=== PATIENT | female | born 1945 | race Caucasian/White ===

== ENCOUNTER 2021-09-09 13:03 | Inpatient (IN) | payer MEDICARE ==
[~2021-09-09] VITALS: Ht 162.6 cm; Wt 72.1 kg
[~2021-09-09 13:03] MED LIST: Naprosyn500 MG PO; Norco 5-325 Ta1 EACH PO
[2021-09-09 13:49] LABS: BASOPHILS ABSOLUTE AUTO 0.03 K/mm3 (0.00-0.23); BASOPHILS PERCENT AUTO 0 % (0-2); EOSINOPHILS ABSOLUTE AUTO 0.17 K/mm3 (0.00-0.68); EOSINOPHILS PERCENT AUTO 2 % (0-6); Hematocrit 42.7 % (33.0-51.0); Hemoglobin 14.1 g/dL (11.5-16.0); IMMATURE GRAN ABSOLUTE AUTO 0.03 K/mm3 (0.00-0.10); IMMATURE GRAN PERCENT AUTO 0 % (0-1); LYMPHOCYTES ABSOLUTE AUTO 2.18 K/mm3 (0.84-5.20); LYMPHOCYTES PERCENT AUTO 24 % (21-46); MONOCYTES ABSOLUTE AUTO 0.63 K/mm3 (0.16-1.47); MONOCYTES PERCENT AUTO 7 % (4-13); Mean Corpuscular HGB 31.2 pg (26.0-34.0); Mean Corpuscular Volume 95 fL (80-100); Mean Platelet Volume 9.6 fL (9.1-12.4); NEUTROPHILS ABSOLUTE AUTO 6.08 K/mm3 (1.96-9.15); NEUTROPHILS PERCENT AUTO 67 % (41-73); Platelet Count 389 K/mm3 (150-400); RDW Coefficient Variation 13.2 % (11.7-14.2); RDW Standard Deviation 45.4 fL (35.1-46.3); Red Blood Cell Count 4.52 M/mm3 (3.80-5.20); White Blood Cell Count 9.12 K/mm3 (4.00-11.30)
[2021-09-09 13:50] LABS: Alanine Aminotransfer (ALT/SGP 13 U/L (12-78); Albumin, Blood 3.4 g/dL (3.4-5.0); Albumin/Globulin Ratio 0.8 (0.8-1.8); Alk Phos 149 U/L (50-136); Anion Gap 6 mmol/L (6-16); Aspartate Aminotrans (AST/SGOT 15 U/L (12-37); Bilirubin, Total 0.6 mg/dL (0.1-1.0); Blood Urea Nitrogen 11 mg/dL (8-24); Bun/Creatinine Ratio 12.7 (12.0-20.0); CO2, Blood 28 mmol/L (21-32); Calcium, Blood 8.9 mg/dL (8.5-10.1); Chloride, Blood 108 mmol/L (98-108); Creatinine, Blood 0.86 mg/dL (0.40-1.00); Glomerular Filtration Rate >60 (60-); Glucose, Blood 121 mg/dL (70-99); Potassium, Blood 3.5 mmol/L (3.5-5.5); Sodium, Blood 142 mmol/L (136-145); Total Protein, Blood 7.4 g/dL (6.4-8.2)
[2021-09-09 15:22] LABS: International Normalized Ratio 1.01; Prothrombin Time Results 10.6 Sec (9.7-11.5)
--- NOTE | 2021-09-09 17:29 | NUR ---
GAVE BATH AND SHAPOOED HAIR WITH NURSE / GRIS CARE
[2021-09-09] MEDS ORDERED: VITAMINS (18:25)
--- NOTE | 2021-09-09 20:08 | NUR ---
END OF SHIFT SUMMARY: PATIENT ARRIVED TO UNIT VIA GURNEY. PATIENT ALERT AND ORIENTED TO SELF, FAMILY, MONTH AND REASON FOR ADMISSION (STATED SHE WAS IN [place] AND COULD NOT REMEMBER THAT SHE WAS STILL IN THE HOSPITAL). FACE WAS EQUAL AND SYMMETRICAL. PATIENT DENIED PAIN, NUMBNESS OR TINGLING. PATIENT ABLE TO BEND LEFT KNEE AND FLEX/DORSIFLEX LEFT ANKLE WHEN ASKED. PATIENT IS WEAK AND HAS LIMITED ROM IN LEFT ARM. ABLE TO FOLLOW COMMANDS WITH LEFT ARM (FOR EXAMPLE, ABLE TO GIVE THE RN A LOW HIGH FIVE). PATIENT UP TO BEDSIDE COMMODE WITH 2 PERSON ASSIST. PATIENT ABLE TO MAKE MINIMAL, SMALL MOVEMENTS WITH LEFT FOOT. PATIENT ABLE TO BEAR OWN WEIGHT. FACE IS SYMMETRICAL AND PATIENT HAS FULL ROM OF TONGUE. PATIENT AND REPORTED THAT THE PATIENT WAS ABLE TO EAT BREAKFAST THIS MORNING WITHOUT DIFFICULTY. PATIENT HAD DIFFICULTY FINDING WORDS AT TIMES, BUT SPEECH IS CLEAR. REPORTED THAT THE DIFFICULTY WITH WORD FINDING IS NOT HER BASELINE. PATIENT BECAME AGITATED WHEN IT WAS TIME FOR THE TO LEAVE. SHE REPORTED THAT THEN SHE "WAS GOING TO LEAVE TOO". AFTER EXPLANATION PROVIDED BY RN AND SPOUSE, PATIENT WAS CALM AND COOPERATIVE.
--- NOTE | 2021-09-10 04:58 | NUR ---
Pt is confused oriented to self only. She is impulsive. She took off her telemetry several times, refuses to put it back on. She also took off her IV twie. She does not want another one. Patient is ambulatory, but has a left sided weakness. Patient refuses to get back to bed. She is walking around the room, folding her blankets and attempting to put her clothes on insisting she is leaving. Clin sup Denia aware that patient is walking around the room confuse. Bed alarm is on.
--- NOTE | 2021-09-10 06:27 | NUR ---
Patient is confuse, uncooperative and impulsive. She was found wandering outside room. She refuses to get back to bed. She repeatedly pulled out her IVs and tele. She refuses vitals for the AM. She insist in getting out of bed and putting her clothes on. She does not want to go back to bed after redirecting her. Patient is now transferred to the SCU, Report given to TRACEY SANDOVAL.
--- NOTE | 2021-09-10 15:02 | NUR ---
PATIENT TRYING TO GET UP FROM BED. VERY UNSTEADY AND HAS LEFT SIDE WEAKNESS. ATTEMPTS TO HAVE HER RETURN TO BED ARE MET WITH MUCH RESISTANCE AND PATIENT NOTED TO BE KICKING AND STRIKING OUT AT STAFF. PATIENT IS ABLE TO CALM ENOUGH TO GET HERSELF BACK IN BED. STAFF SITTING NEXT TO BED DISTRACTING PATIENT TO KEEP HER FROM GETTING UP AND FALLING. COMES TO ROOM AND HE WILL DISCHARGE THIS PATIENT TO HOME WITH SPOUSES APPROVAL THAT HE IS WILLING TO TAKE HER HOME AND CAN CARE FOR HER. WAITING FOR DC INSTRUCTIONS AT THIS TIME. WILEY CALDWELL RN
--- NOTE | 2021-09-10 15:23 | NUR ---
PATIENT PLACED IN RESTRAINTS AFTER CONTINUED BEHAVIOR. SHE CONTINUES TO TRY AND GET OUT OF BED WITHOIUT ASSIST. BED ALARMS AND CLOSE MONITORING ARE UNSUCCESSFUL. FAMILY AT BEDSIDE UNABLE TO PERSUADE PAITENT TO STAY IN BED. DC ORDERS NOT RECEIVED AT THIS TIME AND PAITENT REMAINS A FALL RISK. WILEY CALDWELL RN
[2021-09-10] MEDS ORDERED: ASPI325 PO (16:41)
[2021-09-10] MEDS ORDERED: ATORVASTATIN CA80 M1 PO (16:42)
[2021-09-10] MEDS ORDERED: CLOP75 PO (16:43)
== END 2021-09-10 17:13 | disposition home or self-care (01) | DRG 65 ==
LOC: ER 13:03 → MEDS 16:01
PROVIDERS: Physician Assistant; Student in an Organized Health Care Education/Training Program; ADMIT Internal Medicine
DX: I63.9 Cerebral infarction, unspecified (principal); G81.94 Hemiplegia, unspecified affecting left nondominant side; R47.01 Aphasia; E78.00 Pure hypercholesterolemia, unspecified; G47.00 Insomnia, unspecified; R73.03 Prediabetes
CPT/HCPCS: 36415; 70450; 70496; 70498; 70551; 71045; 80053; 82947; 83036; 85025; 85610; 85730; 92610; 93005; 93010; 93306; 93308; 96372; 96374; 96375; 97112; 97116; 97162; 97166; 99285-25; A9270; J1650; J7030; J7050; Q9967

== ENCOUNTER 2023-02-27 12:17 | Inpatient (IN) | payer MEDICARE ==
[~2023-02-27] VITALS: Ht 167.6 cm; Wt 67.7 kg
[~2023-02-27 12:17] MED LIST changes: +ASPI325 PO; +ATORVASTATIN CA80 M1 PO; +CLOP75 PO; +VITAMINS
[2023-02-27 13:34] LABS: BASOPHILS ABSOLUTE AUTO 0.03 K/mm3 (0.00-0.23); BASOPHILS PERCENT AUTO 0 % (0-2); EOSINOPHILS ABSOLUTE AUTO 0.19 K/mm3 (0.00-0.68); EOSINOPHILS PERCENT AUTO 2 % (0-6); Hematocrit 40.6 % (33.0-51.0); Hemoglobin 13.4 g/dL (11.5-16.0); IMMATURE GRAN ABSOLUTE AUTO 0.02 K/mm3 (0.00-0.10); IMMATURE GRAN PERCENT AUTO 0 % (0-1); LYMPHOCYTES ABSOLUTE AUTO 2.17 K/mm3 (0.84-5.20); LYMPHOCYTES PERCENT AUTO 27 % (21-46); MONOCYTES PERCENT AUTO 6 % (4-13); Mean Corpuscular HGB 31.2 pg (26.0-34.0); Mean Corpuscular Volume 94 fL (80-100); Mean Platelet Volume 9.3 fL (9.1-12.4); NEUTROPHILS ABSOLUTE AUTO 5.14 K/mm3 (1.96-9.15); NEUTROPHILS PERCENT AUTO 64 % (41-73); Platelet Count 322 K/mm3 (150-400); RDW Coefficient Variation 12.9 % (11.7-14.2); RDW Standard Deviation 44.6 fL (35.1-46.3); White Blood Cell Count 8.05 K/mm3 (4.00-11.30)
[2023-02-27 13:43] LABS: Albumin, Blood 3.5 g/dL (3.4-5.0); Albumin/Globulin Ratio 0.9 (0.8-1.8); Bilirubin, Total 0.5 mg/dL (0.1-1.0); Bun/Creatinine Ratio 12.2 (12.0-20.0); Calcium, Blood 8.9 mg/dL (8.5-10.1); Creatinine, Blood 0.98 mg/dL (0.40-1.00); Globulin, Blood 3.7 g/dL (2.2-4.0); Potassium, Blood 3.5 mmol/L (3.5-5.5); Total Protein, Blood 7.2 g/dL (6.4-8.2)
[2023-02-27 17:04] LABS: Source, Urine Clean Catch
[2023-02-27 17:11] LABS: Appearance, Urine Clear (Clear); Bilirubin, Urine Neg (Neg); Blood, Urine Neg (Neg); Glucose Qualitative, Urine Neg (Neg); Ketones, Urine Neg (Neg); Leukocyte Esterase, Urine Neg (Neg); Nitrite, Urine Neg (Neg); Protein, Urine Neg (Neg); Urobilinogen, Urine NORM (Normal)
[2023-02-27 17:29] LABS: Color, Urine Pale Yellow (P-Yellow)
[2023-02-27 18:31] VITALS: BP 187/88
[2023-02-27 19:17] VITALS: BP 181/87
--- NOTE | 2023-02-27 22:37 | NUR ---
LATE ENTRY- ER ADMIT PT WAS BROUGHT TO THE ROOM BEFORE MY SHIFT HOWEVER WAS QUICKLY TAKEN FOR IMAGING. PT IS ALERT AND ORIENTED TO SELF, FAMILY AND SOMEWHAT OF THE SITUATION. THE FAMILY ANSWERED MOST OF THE QUESTIONS. PT LOOKED TO FAMILY FOR ANSWERS. DURING THIS TIME I HAD AN INDEPTH CONVERSATION WITH PT AND FAMILY ABOUT CODE STATUS. PT STATES THAT SHE WISHES TO BE A DNR AND PASS NATURALLY IF IT WERE TO OCCUR. SPOUSE AND BOTH SONS AGREED THAT THIS IS HER WISH. MD NOTIFIED AND CODE STATUS UPDATED. PT IS PLEASANTLY CONFUSED. PER FAMILY, PT MENTATION IS CLOSE TO BASELINE. THEY REPORT THAT SHE HAS HAD CONFUSION FOR A LONG TIME AND MENTATION HAS BEEN SLOWLY DECLINING BUT NEVER HAD A DIAGNOSIS. PER FAMILY, PT WALKS OFTEN AT BASELINE AND PARTICIPATES IN DAILY HOUSE HOLD CHORES. BEDSIDE SWALLOW EVAL PERFORMED. NO COUGHING OR CHOKING NOTED. PER MD, OK TO ADVANCE TO CARDIAC DIET WITH ASPIRATION PRECAUTIONS. PT DENIES SMOKING ANY PRODUCT. DURING ADMISSION, EDUCATION PROVIDED ON THE RISKS OF INJURY WHILE USING ANY IGNITION SOURCE AROUND OXYGEN. PT AND FAMILY VERBALIZES UNDERSTANDING. PT DENIES HAVING ANY IGNITION SOURCES. PT SON LEFT DOUBLE CORNER CUTTER OUTSIDE OF THE ROOM IN LOCKED BOX. DOUBLE CORNER CUTTER WAS RETURNED WITH SON WHEN HE LEFT. PT SPOUSE IS AT BEDSIDE AND PLANNING TO STAY OVERNIGHT. BED IS THE LOWEST POSITION, BED ALARM ON WITH CALL LIGHT IN REACH.
[2023-02-28 03:16] VITALS: BP 178/88
--- NOTE | 2023-02-28 06:09 | NUR ---
PT IS ATTEMPTING TO CRAWL OUT OF BED. CONCRETE THINKING. WANTING TO LEAVE THE HOSPITAL. IS AT BEDSIDE. DR. FRANKLIN NOTIFIED. GAURANG ORDERED FOR SAFETY.
--- NOTE | 2023-02-28 07:49 | NUR ---
SHIFT SUMMARY- PT BECAME INCREASINGLY AGITATED AND TRYING TO CLIMB OUT OF BED. PT SPOUSE WAS AT BEDSIDE OVERNIGHT AND TRIED TO HELP KEEP PT CALM AND IN BED. PT HAS LEFT SIDED WEAKNESS, 2 PERSON MAX ASSIST TO THE BEDSIDE COMMODE. I FELT THAT GETTING OUT OF BED IS VERY UNSAFE FOR PT AND STAFF. OFFERED BEDPAN BUT PT DECLINED. PT CONTINUED TO TRY CLIMBING OUT OF BED THROUGHOUT THE SHIFT STATING THAT SHE COULD WALK WITHOUT ISSUE. PT PULLED OFF TELE MULTIPLE TIMES. I SPOKE WITH DR. FRANKLIN. SEE EMAR FOR MEDICAITON ORDER. PT REFUSED THE MEDICAITON AT THE TIME AND CONTINUED TO TRY TO GET OUT OF BED. DR. FRANKLIN NOTIFIED AND GAURANG VEST WAS ORDERED FOR PATIENT SAFETY. PT SON NOW AT BEDSIDE. PER SPOUSE AND SON, THIS IS NOT ACUTE BEHAVIOR. 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 BED IS IN LOWEST POSITION. CALL LIGHT IN REACH AND FAMILY AT BEDSIDE.
[2023-02-28 07:55] VITALS: BP 158/81
[2023-02-28 10:20] LABS: BASOPHILS ABSOLUTE AUTO 0.02 K/mm3 (0.00-0.23); BASOPHILS PERCENT AUTO 0 % (0-2); EOSINOPHILS ABSOLUTE AUTO 0.09 K/mm3 (0.00-0.68); EOSINOPHILS PERCENT AUTO 1 % (0-6); Hematocrit 44.2 % (33.0-51.0); Hemoglobin 14.7 g/dL (11.5-16.0); IMMATURE GRAN ABSOLUTE AUTO 0.04 K/mm3 (0.00-0.10); IMMATURE GRAN PERCENT AUTO 0 % (0-1); LYMPHOCYTES ABSOLUTE AUTO 2.21 K/mm3 (0.84-5.20); LYMPHOCYTES PERCENT AUTO 23 % (21-46); MONOCYTES ABSOLUTE AUTO 0.59 K/mm3 (0.16-1.47); MONOCYTES PERCENT AUTO 6 % (4-13); Mean Corpuscular HGB 30.9 pg (26.0-34.0); Mean Corpuscular HGB Conc 33.3 g/dL (31.5-36.5); Mean Corpuscular Volume 93 fL (80-100); Mean Platelet Volume 9.4 fL (9.1-12.4); NEUTROPHILS ABSOLUTE AUTO 6.56 K/mm3 (1.96-9.15); NEUTROPHILS PERCENT AUTO 69 % (41-73); Platelet Count 291 K/mm3 (150-400); RDW Coefficient Variation 12.6 % (11.7-14.2); RDW Standard Deviation 43.2 fL (35.1-46.3); Red Blood Cell Count 4.75 M/mm3 (3.80-5.20); White Blood Cell Count 9.51 K/mm3 (4.00-11.30)
[2023-02-28 10:44] LABS: Albumin, Blood 3.5 g/dL (3.4-5.0); Albumin/Globulin Ratio 0.9 (0.8-1.8); Bilirubin, Total 0.8 mg/dL (0.1-1.0); Bun/Creatinine Ratio 13.3 (12.0-20.0); Calcium, Blood 9.2 mg/dL (8.5-10.1); Creatinine, Blood 0.83 mg/dL (0.40-1.00); Globulin, Blood 3.9 g/dL (2.2-4.0); Total Protein, Blood 7.4 g/dL (6.4-8.2)
[2023-02-28 15:29] VITALS: BP 159/80
--- NOTE | 2023-02-28 17:49 | NUR ---
SHIFT SUMMARY PT AXO TO SELF ONLY. VSS ALTHOUGH ELEVATED BP NOTED AND THIS NURSE READ IN NOTE THAT PERMISSIVE HTN IS ACCEPTABLE AT THIS TIME. GAURANG LOCO'D THIS SHIFT R/T PT SLEEPING AND FAMILY AT BEDSIDE. BED ALARM ALSO ON. PT 2 ASSIST UP TO CHAIR AND BSC. SPEECH THERAPY EVAL NOT COMPLETED TODAY R/T SPEECH THERAPIST NOT GETTING TO PATIENT TODAY. ECHO THIS SHIFT, SEE RESULTS. BED IN LOW POSTION, CALL LIGHT WITHIN REACH. PT EATING DINNER INDEPENDENTLY AND TOLERATING WELL.
[2023-02-28 19:24] VITALS: BP 179/85
--- NOTE | 2023-02-28 23:54 | NUR ---
DR. ADEN NOTIFIED THAT PT IS PULLING TELE LEADS OFF. PER QA ANALYST, NO EVENTS DURING ADMISSION OR IN THE ED. PERMD PT NEEDS TO STAY ON TELEMETRY. PLEASE SEE EMAR.
--- NOTE | 2023-03-01 01:52 | NUR ---
PT ATTEMPTING TO UNSAFELY GET OUT OF BED. PT CONTINUOUSLY DECLINING TELE MONITOR. EDUCATED PT ON IMPORTANCE OF MONITORING HER CARDIAC RATE AND RHYTHM, PT STATED THAT SHE DID NOT CARE AND WOULD NOT KEEP IT ON. MD NOTIFED. PLS SEE PREVIOUS NURSE NOTE. MEDICATED PER EMAR. GAURANG VEST REQUIRED FOR PT SAFETY. ORDER IN PLACE. SPOUSE IS AT BEDSIDE. PLAN TO REMOVE NON VIOLENT RESTRANTS WHEN PT CAN SAFELY REMAIN IN BED WITH BED ALARM IN USE.
--- NOTE | 2023-03-01 04:08 | NUR ---
PT IS MORE CALM NOW. CONTINUES INTERMITTENLY TO THROW LEGS OFF OF BED. ATTEMPTED TO REPLACE TELE MONITOR. PT BECAME AGGITATED AND STATED "NO", DECLINING TELE. RESETTLED FAIRLY QUICKLY. GAURANG MCINTYRET ON FOR PT SAFETY. BED ALARM ON. SPOUSE IS IN THE ROOM
--- NOTE | 2023-03-01 06:33 | NUR ---
PT IS AROUSABLE TO STIMULI. PT BECAME INCREASINGLY CONFUSED THROUGHOUT THE NIGHT AND ATTEMPTING TO UNSAFELY GET OUT OF THE BED. PLS SEE PREVIOUS NURSE NOTE FOR DETAILS. CONTINUES TO DECLINE TELE MONITOR AT THIS TIME. PT APPEARS TO BE RESTING COMFORTABLY AND INTERMITTENLY THROWING LEGS OVER THE SIDE OF THE BED WITH SPOUSE AT BEDSIDE, BED ALARM ON, AND CALL LIGHT IN REACH. FAMILY DENIES HAVING ANY IGNITION SOURCES. UPDATE- TELE BACK ON.
[2023-03-01 07:47] VITALS: BP 180/82
[2023-03-01 08:21] LABS: BASOPHILS ABSOLUTE AUTO 0.03 K/mm3 (0.00-0.23); BASOPHILS PERCENT AUTO 0 % (0-2); EOSINOPHILS ABSOLUTE AUTO 0.17 K/mm3 (0.00-0.68); EOSINOPHILS PERCENT AUTO 2 % (0-6); Hematocrit 42.6 % (33.0-51.0); Hemoglobin 14.3 g/dL (11.5-16.0); IMMATURE GRAN ABSOLUTE AUTO 0.01 K/mm3 (0.00-0.10); IMMATURE GRAN PERCENT AUTO 0 % (0-1); LYMPHOCYTES ABSOLUTE AUTO 1.81 K/mm3 (0.84-5.20); LYMPHOCYTES PERCENT AUTO 24 % (21-46); MONOCYTES ABSOLUTE AUTO 0.56 K/mm3 (0.16-1.47); MONOCYTES PERCENT AUTO 7 % (4-13); Mean Corpuscular HGB 30.5 pg (26.0-34.0); Mean Corpuscular HGB Conc 33.6 g/dL (31.5-36.5); Mean Corpuscular Volume 91 fL (80-100); Mean Platelet Volume 9.1 fL (9.1-12.4); NEUTROPHILS ABSOLUTE AUTO 5.09 K/mm3 (1.96-9.15); NEUTROPHILS PERCENT AUTO 66 % (41-73); Platelet Count 325 K/mm3 (150-400); RDW Coefficient Variation 12.7 % (11.7-14.2); RDW Standard Deviation 42.1 fL (35.1-46.3); Red Blood Cell Count 4.69 M/mm3 (3.80-5.20); White Blood Cell Count 7.67 K/mm3 (4.00-11.30)
[2023-03-01 08:45] LABS: Albumin, Blood 3.4 g/dL (3.4-5.0); Albumin/Globulin Ratio 0.9 (0.8-1.8); Bilirubin, Total 0.7 mg/dL (0.1-1.0); Bun/Creatinine Ratio 13.4 (12.0-20.0); Calcium, Blood 9.2 mg/dL (8.5-10.1); Creatinine, Blood 0.82 mg/dL (0.40-1.00); Globulin, Blood 3.6 g/dL (2.2-4.0); Magnesium, Blood 2.5 mg/dL (1.6-2.4); Phosphorus, Blood 3.4 mg/dL (2.5-4.9); Potassium, Blood 3.7 mmol/L (3.5-5.5)
[2023-03-01 12:28] VITALS: BP 150/80
[2023-03-01 16:43] VITALS: BP 153/76
--- NOTE | 2023-03-01 17:30 | NUR ---
SHIFT SUMMARY PT AXO TO SELF ONLY BUT IS MORE CONVERSATIONAL THAN YESTERDAY, PLEASANT AND COOPERATIVE WITH CARE. VSS THOUGH PT WAS 180/[address] BONNER NOTIFIED WHO PLACED NEW ORDERS. BP IMPROVED AND PT DID NOT NEED TO BE MEDICATED PER EMAR. IV PATENT AND SALINE LOCKED. PT UP TO CHAIR WITH 2 ASSIST, FWW AND GB. PT'S SONS AND SPOUSE PRESENT IN SHIFTS THROUGHOUT THE DAY. GAURANG LOCO'D AT 1404. BED IN LOW POSITION, CALL LIGHT WITHIN REACH. VISITORS DENIES IGNITION SOURCES.
[2023-03-01 19:46] VITALS: BP 168/78
[2023-03-02 04:40] VITALS: BP 169/73
--- NOTE | 2023-03-02 05:01 | NUR ---
SHIFT SUMMARY PATIENT ALERT MOSTLY TO SELF AND FAMILY. APPEARES INTERNALLY PREOCCUPIED, MINIMALLY RESPONSIVE. IN NO ACUTE DISTRESS, WITHOUT S/Sx OF BEING IN PAIN. CONTINUES ON TELE, SR 82. HAS KEPT TELE ON THROUGHOUT MOST OF SHIFT, ONLY ACCIDENTLY SCRATCHING ONE LEAD OFF THIS AM. REQUIRES VERBAL AND/OR VISUAL CUES CUES TO TAKE MEDICATION OR TAKE A SIP OF WATER. DOES APPEARE TO QUICKLY RECOGNISE WHAT TO DO WHEN SIMPLY HANDED A CUP OF WATER. NO ACUTE CHANGES OVER NIGHT, RESTING SOUNDLY WITH SPOUSE AT BEDSIDE. BED LOCKED, IN LOW POSITION, BED ALARM ON FOR PATIENT SAFETY, CALL LIGHT WITHIN REACH.
[2023-03-02 07:59] VITALS: BP 177/82
[2023-03-02 15:37] VITALS: BP 141/69
--- NOTE | 2023-03-02 16:29 | NUR ---
PT IS A/OX2, PLEASANT AND COOPERATIVE. THE PT HAS SOME MILD CONFUSION AT TIMES PER FAMILY THE PT IS ANSWERING QUESTIONS MORE APPROPRIATLY TODAY COMPARED TO YESTERDAY. THE PT IS A 1 PERSON ASSIST UP USEING THE GAIT BELT AND FWW TO THE BSC AND CHAIR. THE PT WAS UP INTO THE CHAIR FOR MOST OF THE DAY. PTS FAMILY WAS AT THE BEDSIDE. THE PT AMBULATED IN THE ROOM USEING THE FWW WITH THE PHYSICAL THERAPIST. CALL LIGHT IN REACH WILL CONTINUE TO MONITOR AND ASSESS FOR CHANGES
[2023-03-02 19:49] VITALS: BP 142/79
--- NOTE | 2023-03-03 04:50 | NUR ---
SHIFT SUMMARY PATIENT ALERT, PLEASANT, MORE INTERACTIVE THIS SHIFT, SPEAKING MORE. STRENGTH APPEARES TO BE IMPROVING, TRANSFERING FROM BED TO BSC BETTER. STILL DOES NOT USE CALL LIGHT, THOUGH ABLE TO VERBALLY STATE NEED TO VOID. NO ACUTE CHANGES NOTED OVERNIGHT. SPOUSE AT BEDISIDE THROUGHOUT SHIFT. BED ALARM ON FOR PATIENT SAFETY. BED LOW, CALL LIGHT WITHIN REACH.
[2023-03-03 05:55] LABS: BASOPHILS ABSOLUTE AUTO 0.03 K/mm3 (0.00-0.23); BASOPHILS PERCENT AUTO 0 % (0-2); EOSINOPHILS ABSOLUTE AUTO 0.44 K/mm3 (0.00-0.68); EOSINOPHILS PERCENT AUTO 4 % (0-6); Hemoglobin 13.3 g/dL (11.5-16.0); IMMATURE GRAN ABSOLUTE AUTO 0.04 K/mm3 (0.00-0.10); IMMATURE GRAN PERCENT AUTO 0 % (0-1); LYMPHOCYTES ABSOLUTE AUTO 2.44 K/mm3 (0.84-5.20); LYMPHOCYTES PERCENT AUTO 24 % (21-46); MONOCYTES ABSOLUTE AUTO 0.82 K/mm3 (0.16-1.47); MONOCYTES PERCENT AUTO 8 % (4-13); Mean Corpuscular HGB 30.9 pg (26.0-34.0); Mean Corpuscular HGB Conc 33.3 g/dL (31.5-36.5); Mean Corpuscular Volume 93 fL (80-100); Mean Platelet Volume 9.7 fL (9.1-12.4); NEUTROPHILS ABSOLUTE AUTO 6.46 K/mm3 (1.96-9.15); NEUTROPHILS PERCENT AUTO 63 % (41-73); Platelet Count 326 K/mm3 (150-400); RDW Coefficient Variation 13.1 % (11.7-14.2); RDW Standard Deviation 44.7 fL (35.1-46.3); Red Blood Cell Count 4.31 M/mm3 (3.80-5.20); White Blood Cell Count 10.23 K/mm3 (4.00-11.30)
[2023-03-03 06:24] LABS: Bun/Creatinine Ratio 21.3 (12.0-20.0); Calcium, Blood 8.9 mg/dL (8.5-10.1); Creatinine, Blood 1.08 mg/dL (0.40-1.00); Potassium, Blood 3.9 mmol/L (3.5-5.5)
[2023-03-03 07:58] VITALS: BP 143/73
[2023-03-03 16:36] VITALS: BP 129/65
--- NOTE | 2023-03-03 16:40 | NUR ---
SHIFT SUMMARY- PT IS A/O, PLESANT AND COOPERATIVE. SHE IS EATING AND DRINKING WELL THIS SHIFT. WORKED WITH PT AND TOLORATED WELL. FAMILY AT BEDSIDE. SHE WAS UP TO THE CHAIR FOR MUCH OF THIS SHIFT. CALL LIGHT IS JASMINA BARRERA.
[2023-03-03 19:59] VITALS: BP 141/65
[2023-03-04 03:50] VITALS: BP 141/69
--- NOTE | 2023-03-04 04:47 | NUR ---
SHFIT SUMMARY PATIENT ALERT, SLOW COGNITION, BUT IMPROVING, MORE EASILY REDIRECTABLE. NO ATTEMPTS TO GET UP OUT OF BED WITHOUT ASSISTANCE THIS SHIFT. SPOUSE AT BEDSIDE THROUGHOUT SHIFT. NO ACUTE CHANGES NOTED. BED ALARM ON FOR PATIENT SAFETY. BED LOW, CALL LIGHT WITHIN REACH.
[2023-03-04 06:56] LABS: Bun/Creatinine Ratio 21.2 (12.0-20.0); Creatinine, Blood 1.13 mg/dL (0.40-1.00); Potassium, Blood 3.9 mmol/L (3.5-5.5)
[2023-03-04 08:07] VITALS: BP 135/63
[2023-03-04 15:36] VITALS: BP 138/73
--- NOTE | 2023-03-04 16:50 | NUR ---
SHIFT SUMMARY: SHRAVAN IS ALERT, SLOW TO ANSWER QUESTIONS, ABLE TO STATE FULL NAME. SPEECH CHANGED DIET ORDERS TO MECHANICAL SOFT TODAY, PT REMAINS ON THIN LIQUIDS AND PILLS WHOLE WITH WATER, ONE AT A TIME. PT HAS STATED "I'M GOING HOME" TODAY,, DISCUSSED WITH CARE MANAGEMENT AND REQUESTED UPDATE ON DISCHARGE PLAN TO SNF. PT HAS BEEN A ONE-PERSON ASSIST WITH VERBAL QUES THIS SHIFT. SHE HAS VERBALIZED TO FAMILY AT BEDSIDE WHEN SHE NEEDS TO USE THE BEDSIDE COMMODE. SHE DID HAVE AN EPISODE OF INCONTINENT LIQUID DIARRHEA THIS SHIFT, ATTENDS IN PLACE. SHE DID COMPLAIN OF NAUSEA/UPSET STOMACH THIS AM; HOSPITALIST CALLED AND ORDER OBTAINE FOR ZOFRAN. PT REPORTED IMPROVEMENT IN HER SYMPTOMS AND HAS TOLERATED PO INTAKE WELL DURING THE REST OF THE SHIFT. PT IS SITTING UP IN THE RECLINER, CALL LIGHT IN REACH. WCTM UNTIL REPORT IS GIVEN TO MACHINE MADE SHOE UNIT WORKER RN.
--- NOTE | 2023-03-04 19:42 | NUR ---
CALLED AND UPDATED HOSPITALIST THAT PT PULLED HER IV TODAY. ORDER OBTAINED FOR NO IV ACCESS NEEDED. HOSPITALIST ALSO UPDATED ZOFRAN ORDER FROM 4 MG IV Q6 TO 4 MG PO Q6 PRN. UPDATED BEDSIDE RN.
[2023-03-04 20:48] VITALS: BP 149/58
--- NOTE | 2023-03-05 04:14 | NUR ---
SHIFT SUMMARY PATIENT ALERT, CONTINUES TO IMPROVE IN COGNITIVE ABILITIES. MINIMAL REDIRECTION NEEDED THIS SHIFT. NO ATTEMPTS TO GET UP OUT OF BED WITHOUT ASSIST. AMBLE TO VERBALIZE BASIC NEEDS. NO ADVERSE BEHAVIORS OBSERVED NOR REPORTED. NO ACUTE CHANGES NOTED OVERNIGHT. BED LOCKED AND IN LOW POSITION, CALL LIGHT WITHIN REACH.
[2023-03-05 05:01] VITALS: BP 128/55
[2023-03-05 07:54] VITALS: BP 148/63
[2023-03-05 15:24] VITALS: BP 119/60
--- NOTE | 2023-03-05 19:22 | NUR ---
DAY SHIFT SUMMARY: A&Ox3-4. , MICHAEL, STAYED LAST NIGHT AND STAYING AGAIN AT BEDSIDE TONIGHT DUE TO IMPULSIVENESS. SON AT BEDSIDE MOST OF DAY. PILLS WHOLE WITH FLUIDS, ONE AT A TIME. ABLE TO FEED SELF. 1PA W/ GB&FWW. AWAITING INSURANCE AUTHORIZATION FOR PLACEMENT FOR REHAB. NO CONCERNS. REPORT TO ONCOMING RN.
[2023-03-05 19:34] VITALS: BP 141/57
[2023-03-06 01:14] VITALS: BP 144/64
--- NOTE | 2023-03-06 04:04 | NUR ---
SLOW TO RESPOND, AT BEDSIDE, PATIENT SLOW BUT IMPULSIVE TO GET OOB TO COMMODE, STAND BY ASSIST, NO IV ACCESS, LEFT SIDED WEAKNESS, BUT STRENGHT EQUAL. MINIMAL SPEECH, PATIENT HAS BEEN FREE FROM RESTRAINTS FOR 48+ HOURS, BED ALARM ON, CALL LIGHT WITH IN REACH, WILL RELAY TO PM RN
[2023-03-06 07:20] VITALS: BP 151/70
--- NOTE | 2023-03-06 10:35 | NUR ---
PATIENT HAS FAMILY VISITING AT THE MOMENT AND REQUESTED TO DEFER MEDICATIONS AND ASSESSMENT UNTIL THEY'VE LEFT.
[2023-03-06 15:52] VITALS: BP 133/55
[2023-03-06 19:46] VITALS: BP 130/61
--- NOTE | 2023-03-06 20:21 | NUR ---
DAY SHIFT SUMMARY: A&Ox2-3. DEFINITE CONFUSION AND DELUSIONS NOTED AROUND SHIFT CHANGE C/W SUNDOWNING SYMPTOMS. DR HERNANDEZ TO BEDSIDE TO DISCUSS NEED FOR SHORT-TERM REHABILITATION. IS ADAMATE THAT FAMILY IS TRYING TO "STEAL THE PROPERTY" AND DOES NOT WANT HER TO GO TO REHAB FOR FEAR SHE WILL BE "PUT AWAY FOR GOOD". PT IS AGREEABLE WHILE PROVIDER IN ROOM BUT ONCE PROVIDER LEAVES STATES, "I DON'T GO. I'LL BE GOING HOME". BED ALARM ON D/T IMPULSIVENESS AND GETTING UP WITHOTU CALLING FOR ASSISTANCE. AMBULATIES WITH FWW IF DIRECTED TO BUT VERY FORGETFUL AND NOT EASILY REDIRECTED IF SHE IS DETERMINED TO COMPLETE A TASK: TODAY IT WAS WATERING SPANGLER IN WINDOW SILL. MAY BENEFIT FROM CUTTER BRAKE LINING CONSULT R/T POWER OF HIGH WORKER INFORMATION SHE AND ARE UNDER THE IMPRESSION THIS GIVES SON ABILITY TO "KICK THEM OUT OF THE HOUSE". REPORT TO ONCOMING RN.
[2023-03-07 04:54] VITALS: BP 142/65
--- NOTE | 2023-03-07 05:38 | NUR ---
PATIENT CONFUSED, ORIENTED TO SELF AND BILL AT BEDSIDE, PATIENT STARTED THE PM SHIFT VERY CONFUSED AND TRYING TO LEAVE THE HOSPITAL, MEDICATED WITH SEROQUEL, PATIENT SLEPT ALL NIGHT, BED ALARM ON, LS CLEAR, NO IV ACCESS OR BLOOD PRODUCTS, 97% SATS ON RA, AFIBRILE, HTN 142/65. PATIENT TO BE EVALUATED FOR [facility] REHAB FOR A SHORT STAY OR [facility], PATIENT NOT ACCEPTING TO GO SOMEWHERE OTHER THAN HOME. CALL LIGHT WITH IN REACH, WILL RELAY TO PM RN
[2023-03-07 07:14] VITALS: BP 146/67
[2023-03-07 09:00] VITALS: BP 146/67
[2023-03-07] MEDS ORDERED: ATOR80 PO (15:03)
[2023-03-07] MEDS ORDERED: ASPI81CH PO (15:03)
[2023-03-07] MEDS ORDERED: IRBE150 PO (15:04)
[2023-03-07] MEDS ORDERED: QUET25 PO (15:05)
--- NOTE | 2023-03-07 16:25 | NUR ---
DISCHARGE- LATE ENTRY 1530 PT DISCHARGED WITH HOME HEALTH. PT IS ALERT AND ORIENTED TO SELF AND FAMILY, READY TO GO HOME. SPOUSE, SISTER INLAWS ARE AT BEDSIDE. NO ACUTE CHANGES DURING THIS SHIFT. PT WILL BE TRANSPORTED BY FAMILY. DISCHARGE INSTRUCTIONS DISCUSSED WITH PT AND FAMILY. EMPHASIZED THE IMPORTANCE OF TAKING MEDICAITONS PRESCRIBED AND FOLLOWING UP PCP TO HELP PREVENT REHOSPITALIZATION. NO QUESTIONS AT THIS TIME.
== END 2023-03-07 15:28 | disposition home health service (06) | DRG 65 ==
LOC: ER 12:17 → MEDS 12:18
PROVIDERS: Hospitalist; Physician Assistant; Student in an Organized Health Care Education/Training Program; ADMIT Internal Medicine
DX: I63.9 Cerebral infarction, unspecified (principal); F05 Delirium due to known physiological condition; G81.94 Hemiplegia, unspecified affecting left nondominant side; E78.00 Pure hypercholesterolemia, unspecified; R73.03 Prediabetes; I10 Essential (primary) hypertension; R29.810 Facial weakness; Z79.82 Long term (current) use of aspirin; Z79.899 Other long term (current) drug therapy; Z79.02 Long term (current) use of antithrombotics/antiplatelets
CPT/HCPCS: 36415; 70450; 70496; 70498; 70551; 80048; 80053; 81003; 83735; 84100; 85025; 92526; 92610; 93005; 93010; 93306; 96372; 96374; 97112; 97116; 97162; 97166; 97530; 97535; 99285-25; A9270; G0378; J1630; J1650; J2060; J2405; Q9967

== ENCOUNTER 2024-05-26 14:31 | Inpatient (IN) | payer MEDICARE ==
[~2024-05-26] VITALS: Ht 152.4 cm; Wt 60.1 kg
[~2024-05-26 14:31] MED LIST changes: +ASPI81CH PO; +ATOR80 PO; +IRBE150 PO; +QUET25 PO
[2024-05-26] MEDS ORDERED: NS 1,000 ML IV SCH ×3 (15:15→19:30)
[2024-05-26 15:16] LABS: BASOPHILS ABSOLUTE AUTO 0.09 K/mm3 (0.00-0.23); BASOPHILS PERCENT AUTO 0 % (0-2); EOSINOPHILS ABSOLUTE AUTO 0.01 K/mm3 (0.00-0.68); EOSINOPHILS PERCENT AUTO 0 % (0-6); Hematocrit 51.5 % (33.0-51.0); Hemoglobin 16.7 g/dL (11.5-16.0); IMMATURE GRAN ABSOLUTE AUTO 0.29 K/mm3 (0.00-0.10); IMMATURE GRAN PERCENT AUTO 1 % (0-1); LYMPHOCYTES ABSOLUTE AUTO 2.01 K/mm3 (0.84-5.20); LYMPHOCYTES PERCENT AUTO 6 % (21-46); MONOCYTES ABSOLUTE AUTO 1.08 K/mm3 (0.16-1.47); MONOCYTES PERCENT AUTO 3 % (4-13); Mean Corpuscular HGB 31.9 pg (26.0-34.0); Mean Corpuscular HGB Conc 32.4 g/dL (31.5-36.5); Mean Corpuscular Volume 98 fL (80-100); Mean Platelet Volume 11.5 fL (9.1-12.4); NEUTROPHILS ABSOLUTE AUTO 29.81 K/mm3 (1.96-9.15); NEUTROPHILS PERCENT AUTO 90 % (41-73); Platelet Count 197 K/mm3 (150-400); RDW Coefficient Variation 13.7 % (11.7-14.2); RDW Standard Deviation 49.4 fL (35.1-46.3); Red Blood Cell Count 5.24 M/mm3 (3.80-5.20); White Blood Cell Count 33.29 K/mm3 (4.00-11.30)
[2024-05-26 15:38] LABS: Albumin, Blood 2.5 g/dL (3.4-5.0); Albumin/Globulin Ratio 0.5 (0.8-1.8); Bilirubin, Total 1.6 mg/dL (0.1-1.0); Bun/Creatinine Ratio 31.6 (12.0-20.0); Calcium, Blood 9.5 mg/dL (8.5-10.1); Creatinine, Blood 2.28 mg/dL (0.40-1.00); Globulin, Blood 4.8 g/dL (2.2-4.0); Potassium, Blood 4.1 mmol/L (3.5-5.5); Thyroid Stimulating Hormone 1.42 uIU/mL (0.360-4.800); Total Protein, Blood 7.3 g/dL (6.4-8.2)
[2024-05-26] MEDS ORDERED: Vancomycin HCL 1,500 MG in NS 250 ML IV ONE (16:05)
[2024-05-26] MEDS ORDERED: Cefepime HCl 1,000 MG in NS 100 ML IV ONE (16:05)
[2024-05-26 16:53] LABS: Bicarbonate Venous 26.8 mmol/L (24.0-30.0); PCO2 Venous 38.4 mmHg (38-42); pH Blood Venous 7.45 (7.34-7.37)
[2024-05-26 16:55] LABS: Source, Urine Straight Cath
[2024-05-26 16:58] LABS: Bilirubin, Urine Neg (Neg); Blood, Urine 3+ (Neg); Color, Urine Amber (P-Yellow); Glucose Qualitative, Urine Neg (Neg); Ketones, Urine Neg (Neg); Leukocyte Esterase, Urine 1+ (Neg); Nitrite, Urine Neg (Neg); Protein, Urine 3+ (Neg); Urobilinogen, Urine NORM (Normal)
[2024-05-26 17:08] LABS: Amorphous Light (0-Heavy); Appearance, Urine Hazy (Clear); Hyaline Casts 0-2 /lpf (0-2); Mucus Light (0-Heavy)
[2024-05-26 17:09] LABS: Red Blood Cells, Urine 0-2 /hpf (0-2); Yeast/Fungi Urine Few /hpf
[2024-05-26 17:10] LABS: Bacteria Many /hpf; Calcium Oxalate Crystals Few /hpf; Squamous Epithelial Cells Mod /hpf (Few)
[2024-05-26] MEDS ORDERED: Aspirin 300 MG Supp PR ONE (17:15)
[2024-05-26] MEDS ORDERED: Ondansetron HCl 2 MG / ML 2ML Vial IV PRN (19:25)
[2024-05-26] MEDS ORDERED: Labetalol HCL 5 MG/ML 4ML Injection (Single Dose) IV PRN (19:30)
[2024-05-26] MEDS ORDERED: FentaNYL Citrate 50 MCG/ML 2 ML Injection IV PRN (20:30)
[2024-05-26] MEDS ORDERED: Azithromycin 500 MG in NS 250 ML IV SCH (21:00)
[2024-05-26 21:14] LABS: Bun/Creatinine Ratio 35.1 (12.0-20.0); Calcium, Blood 8.3 mg/dL (8.5-10.1); Creatinine, Blood 1.94 mg/dL (0.40-1.00); Potassium, Blood 3.4 mmol/L (3.5-5.5)
[2024-05-26 21:39] VITALS: BP 153/92
[2024-05-26] MEDS ORDERED: D5W-1/2NS 1,000 ML IV SCH (23:00)
[2024-05-26] MEDS ORDERED: Potassium Chl 20MEQ/Water100ML 100 ML IV SCH (23:05)
[2024-05-27] VITALS (16 sets, daily range): BP systolic 100–194; BP diastolic 64–114
--- NOTE | 2024-05-27 00:09 | NUR ---
PT WAS ADMITTED FROM THE ER. PT WAS NOT RESPONDING TO QUESTIONS, WAS FOLLOWING COMMANDS. PT WAS IN NORMAL SINUS RYTHM 90s. PT SOUNDED COURSE/DIMINISHED WITH 4L NC. PT HAS WINTERS CATHETER IN FOR RETENTION. PT HAD SOME GENERALIZED BRUISING WITH REDDNESS ON BUTTOCK WITHOUT BLANCHING. PLAN OF CARE CONTINUED.
[2024-05-27 01:17] LABS: Base Excess Venous -3.3 mmol/L; Bicarbonate Venous 22.2 mmol/L (24.0-30.0); PCO2 Venous 33.7 mmHg (38-42); pH Blood Venous 7.41 (7.34-7.37)
[2024-05-27 01:19] LABS: BASOPHILS ABSOLUTE AUTO 0.05 K/mm3 (0.00-0.23); BASOPHILS PERCENT AUTO 0 % (0-2); EOSINOPHILS ABSOLUTE AUTO 0.03 K/mm3 (0.00-0.68); EOSINOPHILS PERCENT AUTO 0 % (0-6); Hematocrit 50.6 % (33.0-51.0); Hemoglobin 15.9 g/dL (11.5-16.0); IMMATURE GRAN ABSOLUTE AUTO 0.27 K/mm3 (0.00-0.10); IMMATURE GRAN PERCENT AUTO 1 % (0-1); LYMPHOCYTES ABSOLUTE AUTO 1.68 K/mm3 (0.84-5.20); LYMPHOCYTES PERCENT AUTO 6 % (21-46); MONOCYTES ABSOLUTE AUTO 0.64 K/mm3 (0.16-1.47); MONOCYTES PERCENT AUTO 2 % (4-13); Mean Corpuscular HGB 31.8 pg (26.0-34.0); Mean Corpuscular HGB Conc 31.4 g/dL (31.5-36.5); Mean Corpuscular Volume 101 fL (80-100); Mean Platelet Volume 11.1 fL (9.1-12.4); NEUTROPHILS ABSOLUTE AUTO 26.21 K/mm3 (1.96-9.15); NEUTROPHILS PERCENT AUTO 91 % (41-73); Platelet Count 152 K/mm3 (150-400); RDW Coefficient Variation 13.8 % (11.7-14.2); RDW Standard Deviation 51.9 fL (35.1-46.3); White Blood Cell Count 28.88 K/mm3 (4.00-11.30)
[2024-05-27 01:35] LABS: International Normalized Ratio 1.22; Prothrombin Time Results 12.9 Sec (9.7-11.5)
[2024-05-27 01:44] LABS: Albumin, Blood 2.3 g/dL (3.4-5.0); Albumin/Globulin Ratio 0.5 (0.8-1.8); Bilirubin, Total 1.4 mg/dL (0.1-1.0); Bun/Creatinine Ratio 35.1 (12.0-20.0); Calcium, Blood 8.6 mg/dL (8.5-10.1); Creatinine, Blood 1.88 mg/dL (0.40-1.00); Globulin, Blood 4.4 g/dL (2.2-4.0); Magnesium, Blood 2.6 mg/dL (1.6-2.4); Potassium, Blood 3.8 mmol/L (3.5-5.5); Total Protein, Blood 6.7 g/dL (6.4-8.2)
--- NOTE | 2024-05-27 05:10 | NUR ---
PT STILL NOT COMMUNICATING VERY WELL, PT DID SAY NAME AND CONTINUES TO MOAN IN PAIN. PAIN IS BEING MANAGED MEDICALLY. DR. PENA NOTIFIED ABOUT PT BEING LETHARGIC WITH NO IMPROVEMENT. NO NEW ORDERS PLACED. PLAN OF CARE CONTINUED.
[2024-05-27 07:40] LABS: Albumin/Globulin Ratio 0.5 (0.8-1.8); Bilirubin, Total 1.3 mg/dL (0.1-1.0); Bun/Creatinine Ratio 37.1 (12.0-20.0); Creatinine, Blood 1.67 mg/dL (0.40-1.00); Globulin, Blood 4.3 g/dL (2.2-4.0); Potassium, Blood 3.9 mmol/L (3.5-5.5); Total Protein, Blood 6.3 g/dL (6.4-8.2)
[2024-05-27] MEDS ORDERED: AmLODIPine Besylate 5 MG Tab PO SCH (08:00)
[2024-05-27] MEDS ORDERED: Metoprolol Succinate 25 MG TABCR PO SCH (08:00)
[2024-05-27] MEDS ORDERED: Labetalol HCL 500 MG in Dextrose 5% 150 ML IV SCH (08:45)
[2024-05-27] MEDS ORDERED: Atorvastatin 40 MG Tab PO SCH ×2 (09:00→21:00)
[2024-05-27] MEDS ORDERED: Aspirin 81 MG Chew PO SCH (09:00)
[2024-05-27] MEDS ORDERED: CefTRIAXone Sodium 1,000 MG in NS 100 ML IV SCH (09:00)
[2024-05-27] MEDS ORDERED: Dextrose 5% 1,000 ML IV SCH (12:10)
--- NOTE | 2024-05-27 16:30 | NUR ---
SHIFT SUMMARY: PT REMAINS MINIMALLY RESPONSIVE, RESPONDS TO NOXIOUS STIMULI. UNABLE TO TELL THIS RN NAME, , OR LOCATION. BP HYPERTENSIVE THIS AM, SENIOR NETWORK ARCHITECT MADE AWARE, LABETALOL INFUSION ORDERED, PT RESPONDED WELL. LABETALOL ABLE TO BE TITRATED OFF THIS MORNING. HR SR 70'S. AFEBRILE. SPO2 >95% ON 4L NC. RESPIRATIONS EVEN AND UNLABORED. WINTERS CATHETER IN PLACE, DRAINING YELLOW URINE TO GRAVITY. NO BM. D5 GTT @100ML/HR. ABD SOFT, NON TENDER, BOWEL SOUNDS +. PULSES STRONG AND EQUAL THROUGHOUT. PT REMAINS VERY PAINFUL. SKIN WITH BRUISES SCATTERED T/O. MUTIPLE RIB FX AND STERNUM FX NOTED ON PT IMAGING. FAMILY AT BEDSIDE UNAWARE OF HOW FRACTURES OCCURED. DENIES PT FALLING AT HOME. SURGEON AT BEDSIDE THIS AM, NO INTERVENTIONS AT THIS TIME. PALLIATIVE CARE ORDERED TO DISCUSS GOALS OF CARE WITH FAMILY. PT REPOS Q2 TO MAINTAIN SKIN INTEGRITY. BED IN LOW, CALL LIGHT IN REACH, WILL REPORT TO ONCOMING RN.
[2024-05-27] MEDS ORDERED: Morphine Sulfate 4 MG/1 ML Injection IV PRN (22:30)
[2024-05-27] MEDS ORDERED: Acetaminophen 325 MG Supp PR PRN (22:30)
--- NOTE | 2024-05-27 23:09 | NUR ---
ASSUMPTION OF CARE AFTER RECEIVING REPORT FROM KATJA RN, THIS RN ASSUMED CARE AT 1915. PATIENT ALERT, MOSTLY RESPONDS TO NOXIOUS STIMULI. IS ABLE TO COMMUNICATE WITH ONE WORD STATEMENTS AT TIMES, BUT MOSTLY YELLS OUT WITH STIMULI. UNABLE TO REPORT HER NAME, DATE OF . PERRLA. MOVES ALL EXTREMITIES EQUALLY WITH GENERALIZED WEAKNESS. AFEBRILE. TELEMETRY SHOWING SINUS 70s. LABETALOL GTT ON STAND BY. SBP 140s-150s. ON 2L VIA NC, SATs >90%. D5 INFUSING AT 100ML/HR. WINTERS CATHETER IN PLACE, DRAINING MICHELE URINE TO GRAVITY. ATTENDS PLACED. Q2H REPOSITIONING. AROUND 2129, PATIENT BEGAN YELLING "OW." IS ABLE TO REPORT THAT HER "ARM AND CHEST HURTS." PATIENT WITH MULTIPLE RIB FXs. MEDICATED PER EMAR W/ IV FENTANYL WITH NO RELIEF. MD PENA CONTACTEDMD TO BEDSIDE TO ASSESS PATIENT. PLACED ORDERS FOR IV MORPHINE AND MS TYLENOL. ADMINISTERED PER EMAR. WILL CONTINUE TO MONITOR. AT BEDSIDE. BED ALARM ON. CALL LIGHT IN REACH.
[2024-05-28] VITALS (14 sets, daily range): BP systolic 98–160; BP diastolic 64–108
--- NOTE | 2024-05-28 01:50 | NUR ---
SHORT ROUNDING IN UNIT. PATIENT WITHOUT MORNING LAB ORDERS. MD TO REVIEW CHART AND PLACE ORDERS
[2024-05-28 03:57] LABS: BASOPHILS ABSOLUTE AUTO 0.06 K/mm3 (0.00-0.23); BASOPHILS PERCENT AUTO 0 % (0-2); EOSINOPHILS PERCENT AUTO 3 % (0-6); Hematocrit 44.4 % (33.0-51.0); Hemoglobin 13.7 g/dL (11.5-16.0); IMMATURE GRAN ABSOLUTE AUTO 0.19 K/mm3 (0.00-0.10); IMMATURE GRAN PERCENT AUTO 1 % (0-1); LYMPHOCYTES ABSOLUTE AUTO 2.11 K/mm3 (0.84-5.20); LYMPHOCYTES PERCENT AUTO 8 % (21-46); MONOCYTES ABSOLUTE AUTO 0.76 K/mm3 (0.16-1.47); MONOCYTES PERCENT AUTO 3 % (4-13); Mean Corpuscular HGB 31.6 pg (26.0-34.0); Mean Corpuscular HGB Conc 30.9 g/dL (31.5-36.5); Mean Corpuscular Volume 103 fL (80-100); Mean Platelet Volume 12.3 fL (9.1-12.4); NEUTROPHILS ABSOLUTE AUTO 24.14 K/mm3 (1.96-9.15); NEUTROPHILS PERCENT AUTO 86 % (41-73); Platelet Count 107 K/mm3 (150-400); RDW Coefficient Variation 13.5 % (11.7-14.2); RDW Standard Deviation 51.4 fL (35.1-46.3); Red Blood Cell Count 4.33 M/mm3 (3.80-5.20); White Blood Cell Count 27.96 K/mm3 (4.00-11.30)
[2024-05-28 04:23] LABS: Albumin, Blood 1.7 g/dL (3.4-5.0); Albumin/Globulin Ratio 0.4 (0.8-1.8); Bilirubin, Total 1.1 mg/dL (0.1-1.0); Bun/Creatinine Ratio 34.9 (12.0-20.0); Calcium, Blood 8.3 mg/dL (8.5-10.1); Creatinine, Blood 1.26 mg/dL (0.40-1.00); Globulin, Blood 3.8 g/dL (2.2-4.0); Potassium, Blood 3.5 mmol/L (3.5-5.5); Total Protein, Blood 5.5 g/dL (6.4-8.2)
--- NOTE | 2024-05-28 04:55 | NUR ---
SHIFT SUMMARY NO ACUTE EVENTS SINCE ASSUMPTION OF CARE NOTE. PATIENTs PAIN MANAGED PER EMAR WITH X1 DOSE OF IV MORPHIN AND CA TYLENOL PER EMAR. ABLE TO SLEEP MOST OF THE NIGHT, EASILY AROUSABLE WITH VERBAL STIMULI. NEURO CONTINUES TO WAX AND WANE - ABLE TO COMMUNICATE THROUGH ONE WORD STATEMENTS AND ANSWER SIMPLE YES/NO QUESTIONS AT TIMES, MOSTLY YELLS OUT WITH STIMULI. MOVES ALL EXTREMITIES EQUALLY, ABLE TO FOLLOW SIMPLE COMMANDS. AFEBRILE. TELEMETRY SHOWING SINUS 60s-70s. AROUND 0400, PATIENTs SBP SUSTAINING >150. LABETALOL GTT 2.5MG/MIN ON FOR APPROX 30 MINUTES. MOST RECENT SBP 110s. GTT CURRENTLY ON STAND BY. REMAINS ON 2-4L VIA NC, SATs >90%. WINTERS CATHETER DRAINING MICHELE, CLOUDY URINE. SECOND BAG OF D5 INFUSING PER EMAR AT 100ML/HR. NO BM THIS SHIFT. Q2H REPOSITIONING. AT BEDSIDE. CALL LIGHT IN REACH. BED ALARM ON. WILL CONTINUE TO MONITOR AND REPORT TO ONCOMING RN.
[2024-05-28] MEDS ORDERED: Pantoprazole Sodium 40 MG Tab PO SCH (06:00)
--- NOTE | 2024-05-28 09:45 | NUR ---
NURSE NOTE DR. JARVIS CALLED TO INFORM THIS RN THAT A FAMILY MEETING WILL BE HELF AT 1345 TODAY TO DISCUSS PATIENT CARE PLAN. SPOUSE AT BEDSIDE, CALL LIGHT IN REACH
[2024-05-28] MEDS ORDERED: NYSTATIN100000 UNI SS (11:49)
[2024-05-28] MEDS ORDERED: Morphine Sulfate 20 MG/1ML 1 ML Oral Syringe SL PRN (14:15)
[2024-05-28] MEDS ORDERED: LORazepam 2 MG/ML 1ML Injection IV PRN (14:15)
[2024-05-28] MEDS ORDERED: Acetaminophen 325 MG TABLET PO PRN (14:15)
[2024-05-28] MEDS ORDERED: Atropine Sulfate 1% Opth Soln 2ML BTL SL PRN (14:40)
[2024-05-28] MEDS ORDERED: Scopolamine Hydrobromide Patch TOP PRN (14:40)
--- NOTE | 2024-05-28 14:42 | NUR ---
VERBAL ORDERS OBTAINED FROM DR. MARIN R/T CLARIFICATION OF COMFORT CARE ORDERS. D/C MORPHINE IV. ROXANOL SL IS AVAILABLE. ADDED RX'S TO MANAGE SECREATIONS. UPDATE PROVIDED TO PRIMARY RN AND CUBE MACHINE TENDER.
--- NOTE | 2024-05-28 17:29 | NUR ---
NURSE NOTE PATIENT TRANSITONED TO COMFORT CARE DURING THIS SHIFT. WARM BLANKET PROVIDED, CHAPSTICK APPLIED. PT RESPONS TO PHYSICAL STIMUS. PT WILL MUMBLE OR STATE ONE WORD AT A TIME. PATIENT UNABLE TO MAKE NEEDS KNOWN AT THIS TIME, SPOUSE AT BEDSIDE. OFFERING REPOTIONING NEEDED. MEDICATED PER EMAR TO MAINTAIN COMFORT.
--- NOTE | 2024-05-28 20:37 | NUR ---
ASSUMPTION OF CARE AFTER RECEIVING REPORT FROM KENNEDY SANDOVAL, THIS RN ASSUMED CARE AT APPROX 1915. AT BEDSIDE. PATIENT MINIMALLY RESPONSIVE TO PAINFUL, NOXIOUS STIMULI. WILL OCCASIONALLY YELL OR MOAN OUT. ON ROOM AIR, SATs >90%. RECEIVED ATIVAN AND ROXANOL FOR WORK OF BREATHING PRIOR TO ASSUMPTION OF CARE - SEEMS TO BE RESTING COMFORTABLY. RR EVEN, TACHYPNEIC 20s. LUNG SOUNDS DIMINISHED IN BASES. IS NOT PULLING AT GOWN, LINENS. CALL LIGHT IN REACH. WILL CONTINUE TO MONITOR.
--- NOTE | 2024-05-29 05:48 | NUR ---
SHIFT SUMMARY NO ACUTE EVENTS SINCE ASSUMPTION OF CARE NOTE. PATIENT RESPONSIVE TO NOXIOUS, PAINFUL STIMULI - WILL MOAN OUT SHORT ONE WORD STATEMENTS. AT BEDSIDE. MEDICATED PER EMAR WITH ATIVAN AND ROXANOL TO MAINTAIN COMFORT. OFFERING REPOSITIONING NEEDED. WINTERS CATHETER IN PLACE DRAINING MICHELE URINE TO GRAVITY. CALL LIGHT IN REACH. WILL CONTINUE TO MONITOR AND REPORT TO ONCOMING RN.
--- NOTE | 2024-05-29 07:23 | NUR ---
ASSUMING CARE ASSUMED CARE OF THIS PATIENT AT 0700. PATIENT SPOUSE REMAINS AT BEDSIDE. PATIENT APPEARS TO BE RESTING COMFORTABLY AT THIS TIME. CALL LIGHT IN REACH OF SPOUSE.
--- NOTE | 2024-05-29 17:29 | NUR ---
SHIFT SUMMARY PATIENT REMAINS ON COMFORT CARE. REPOSTIONING NEEDED FOR PATIENT COMFORT. WINTERS CATH REMAINS IN PLACE DRAINING TO GRAVITY. PATIENT HAS NOT HAD ANY ORAL INTAKE THIS SHIFT, MOUTH MOISTNED WITH SWABS, AND CHAPSTICK APPLIED. SPOUSE HAS RAMAINED AT BEDSIDE ALL SHIFT. CALL LIGHT IN REACH FOR SPOUSE TO USE.
--- NOTE | 2024-05-29 21:52 | NUR ---
ASSUMPTION OF CARE AFTER RECEIVING REPORT FROM KENNEDY SANDOVAL, THIS RN ASSUMED CARE AT APPROX 1915. PATIENT MINIMALLY RESPONSIVE TO NOXIOUS, PAINFUL STIMULI. APPEARS TO BE COMFORTABLY AT THIS TIME - WILL CONTINUE TO MONITOR AND MEDICATE PER EMAR PRN. MULTIPLE MEMBERS OF FAMILY AT BEDSIDE. WINTERS CATHETER IN PLACE, DRAINING MICHELE URINE TO GRAVITY. CALL LIGHT IN REACH.
--- NOTE | 2024-05-30 05:29 | NUR ---
SHIFT SUMMARY NO ACUTE EVENTS SINCE ASSUMPTION OF CARE NOTE. PATIENT REMAINS RESPONSIVE TO NOXIOUS, PAINFUL STIMULI - WILL OCCASIONALLY MOAN OUT. MULTIPLE FAMILY MEMBERS AT BEDSIDE THROUGHOUT NIGHT. MEDICATED PER EMAR WITH ATIVAN AND ROXANOL TO MAINTAIN COMFORT. OFFERING REPOSITIONING NEEDED. WINTERS CATHETER IN PLACE DRAINING MICHELE URINE. CALL LIGHT IN REACH OF SPOUSE. WILL CONTINUE TO MONITOR AND REPORT TO ONCOMING RN.
--- NOTE | 2024-05-30 09:52 | NUR ---
NURSE NOTE PATIENT REMAINS SOMULENT THIS AM, FAMILY IS AT BEDSIDE. DR. LYNCH AND DR. JORGE ROUNDED THIS MORNING TO ANSWER FAMILYS ADDITIONAL QUESTIONS. CALL LIGHT IN REACH OF FAMILY FOR ASSISTANCE.
--- NOTE | 2024-05-30 10:47 | NUR ---
Spiritual care visit conducted. Patient is lying in bed and minimally responsive. Patient's family is bedside and admittedly dealing with many emotions. They talk at length about their mother's personality, hobbies and qualities. They share about their mother's medical history and the events that led to her hospital admission. They speak about the sudden decline and the heartbreak they all feel. I normalized their concerns and feelings, reinforced helpful attitudes and perspectives and provided therapeutic listening, anticipatory greif support, and a calming presence. The family responded well and showed signs of greater peace.
--- NOTE | 2024-05-30 14:05 | NUR ---
NURSE NOTE PATIENT ROUNDING, MOUTH CARE ITEMS PROVIDED TO FAMILY (SWABS, CHAPSTICK, AND RAGS.) THIS RN OFFERED TO PROVIDE CARE, SPOUSE STATED HE STILL WANTED TO PROVID THIS CARE HIMSELF. OFFERED REFREASHMENTS TO FAMILY, REFILLED COMFORT CART. CALL LIGHT IN REACH OF FAMILY.
--- NOTE | 2024-05-30 15:07 | NUR ---
NURSE NOTE MEDICATED PER EMAR FOR COMFORT. BED BATH PROVIDED, BRIEF CHANGED. PILLOWS PLACED UNDER HIPS, AND RIGHT SHOULDER. WINTERS CATH EMPTIED. FAMILY AT BEDSIDE WHILE CARE WAS PROVIDED. CALL LIGHT IN REACH OF FAMILY.
--- NOTE | 2024-05-30 15:32 | NUR ---
MET WITH PATIENT AND FAMILY. HER RESPIRATIONS WERE EVEN AND UNLABORED. SKIN WAS COOL AND DRY TO THE TOUCH. MADE FRESH COFFEE FOR THE FAMILY. PROVIDED THERAPUTIC CONVERSATION. CHECKED PATIENTS TEMP PER FAMILY REQUEST. TEMP WAS 98.1 WHICH THEY REPORTED WAS ELEVATED FOR HER. ASKED IF THEY HAD EVERYTHING THEY NEEDED BEFORE EXITING THE ROOM.
--- NOTE | 2024-05-30 17:49 | NUR ---
SHIFT SUMMARY PATIENT REMAINS ON COMFORT CARE THROUGHOUT SHIFT. MEDICATED PER EMAR. PATIENT UNABLE TO COMMUNICATE NEEDS, WILL OCCASSTIONALLY MOAN AND GRIMANCE IN PAIN. WINTERS STILL IN PLACE DRAINING MICHELE COLORED URINE TO GRAVITY. PILLOWS PLACED UNDER PATIENT THROUGHOUT SHIFT FOR COMFORT. FAMILY HAS BEEN AT BEDSIDE ALL DAY AND PARTICIPATING IN CARE AND MAKING PATIENT'S NEEDS KNOWN. CALL LIGHT IN REACH FOR FAMILY TO USE.
--- NOTE | 2024-05-30 20:53 | NUR ---
ASSUMPTION OF CARE: PATIENT IS OBTUNDED, SLOWING RESPIRATIONS. NO APPEARANT PAIN OR SIGNS OF DISTRESS. MULTIPLE FAMILY AT BEDSIDE. DECLINED REPOSITIONS AT THIS TIME DUE TO PAIN. FAMILY VERY PRESENT IN CARE EDUCATED DIRECTOR OF ENGINEERING LIGHT. PATIENT RESTING PEACEFULLY, NO ACUTE CONCERNS FROM FAMILY OR THIS RN.
--- NOTE | 2024-05-31 06:34 | NUR ---
EOS: PATIENT HAS BEEN REQUIRING INCREASED AMOUNT AND FREQUENCY OF ROXANOL TO STAY COMFORTABLE. COMFORT ACHIEVED WITH CURRENT ORDERS, HOWEVER, MAY REQUIRE MORE DURING THE DAY. PATIENT WINTERS PATENT AND DRAINING. NO ACUTE CONCERNS FURTHER
== END 2024-05-31 10:26 | DRG 871 ==
LOC: ER 14:31 → PCU 19:25 → ERHOLD 19:25 → PCU 21:31
PROVIDERS: Family Medicine; Nurse Practitioner Acute Care; Student in an Organized Health Care Education/Training Program; ADMIT Internal Medicine
DX: A41.9 Sepsis, unspecified organism (principal); G92.8 Other toxic encephalopathy; I21.A1 Myocardial infarction type 2; J96.01 Acute respiratory failure with hypoxia; S22.20XA Unspecified fracture of sternum, initial encounter for closed fracture; S22.42XA Multiple fractures of ribs, left side, initial encounter for closed fracture; N17.9 Acute kidney failure, unspecified; E87.1 Hypo-osmolality and hyponatremia; E87.0 Hyperosmolality and hypernatremia; N39.0 Urinary tract infection, site not specified; M80.8AXA Other osteoporosis with current pathological fracture, other site, initial encounter for fracture; J90 Pleural effusion, not elsewhere classified; Z51.5 Encounter for palliative care; Z66 Do not resuscitate; G30.9 Alzheimer's disease, unspecified; Z74.01 Bed confinement status; M62.84 Sarcopenia; G89.11 Acute pain due to trauma; F02.C0 Dementia in other diseases classified elsewhere, severe, without behavioral disturbance, psychotic disturbance, mood disturbance, and anxiety; I67.2 Cerebral atherosclerosis; R65.20 Severe sepsis without septic shock; F01.C0 Vascular dementia, severe, without behavioral disturbance, psychotic disturbance, mood disturbance, and anxiety; Z86.73 Personal history of transient ischemic attack (TIA), and cerebral infarction without residual deficits; I10 Essential (primary) hypertension; E78.5 Hyperlipidemia, unspecified; S40.022A Contusion of left upper arm, initial encounter; S40.021A Contusion of right upper arm, initial encounter; S80.12XA Contusion of left lower leg, initial encounter; S80.11XA Contusion of right lower leg, initial encounter; Z79.82 Long term (current) use of aspirin; Z79.899 Other long term (current) drug therapy; R62.7 Adult failure to thrive; Z68.27 Body mass index [BMI] 27.0-27.9, adult
CPT/HCPCS: 36415; 70450; 71045; 71250; 72125; 73600; 74176; 80048; 80053; 81001; 82550; 82803; 83605; 83735; 84145; 84443; 84484; 85025; 85610; 87040; 87086; 93005; 93010; 93306; 94760; 96365; 96368; 99285-25; A9270; J0456; J0692; J0696; J2060; J2270; J3010; J3370; J3480; J7030; J7042; J7050; J7060; J7070